=== PATIENT | male | born 1985 | race African-American/Black ===

== ENCOUNTER 2018-06-15 18:23 | Emergency (ER) | payer SELFPAY | END 2018-06-15 19:10 | disposition home or self-care (01) | LOC: ERS 18:23 | DX: K03.81 Cracked tooth (principal); K02.9 Dental caries, unspecified | CPT/HCPCS: 99282 ==

== ENCOUNTER 2021-09-12 18:27 | Emergency (ER) | payer SELFPAY | END 2021-09-12 19:11 | disposition home or self-care (01) | LOC: ERS 18:27 | DX: K03.81 Cracked tooth (principal); K02.9 Dental caries, unspecified | CPT/HCPCS: 99282 ==

== ENCOUNTER 2021-12-18 03:51 | Emergency (ER) | payer SELFPAY ==
[2021-12-18] MEDS ORDERED: HYDROcodone/Acetaminophen 10/325 mg Tablet ONE (04:23)
== END 2021-12-18 04:25 | disposition home or self-care (01) ==
LOC: ERS 03:51
DX: K04.7 Periapical abscess without sinus (principal); K02.9 Dental caries, unspecified
CPT/HCPCS: 99282

== ENCOUNTER 2021-12-18 21:42 | Emergency (ER) | payer SELFPAY ==
[2021-12-19] MEDS ORDERED: Bupivacaine 0.5% 10 ML VIAL ONE (00:46)
== END 2021-12-19 01:16 | disposition home or self-care (01) ==
LOC: ERS 21:42
DX: K02.9 Dental caries, unspecified (principal)
CPT/HCPCS: 64400; J3490